=== PATIENT | male | born 1980 | race Caucasian/White ===

== ENCOUNTER 2018-11-29 09:34 | Emergency (ER) | payer SELFPAY ==
[~2018-11-29] VITALS: Ht 190.5 cm; Wt 113.5 kg
[2018-11-29 09:35] VITALS: BP 117/76
--- NOTE | 2018-11-29 09:50 | NUR ---
PATIENT AMBULATED TO BED 6.
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
[2018-11-29 11:07] VITALS: BP 111/72
== END 2018-11-29 11:09 | disposition home or self-care (01) ==
LOC: MED 09:34
DX: L08.89 Other specified local infections of the skin and subcutaneous tissue (principal); B95.7 Other staphylococcus as the cause of diseases classified elsewhere
CPT/HCPCS: 99283

== ENCOUNTER 2023-06-22 07:12 | Emergency (ER) | payer SELFPAY ==
[~2023-06-22] VITALS: Ht 190.5 cm; Wt 113.4 kg
[2023-06-22 07:17] VITALS: BP 133/89; PULSE 118; RESP 18; TEMP 98.1; O2SAT 99
[2023-06-22] MEDS: KETOROLAC 60 MG/2 ML VIAL IM ONE (07:43)
[2023-06-22] MEDS ORDERED: NAPR-1704 PO (08:24)
[2023-06-22 08:48] VITALS: BP 113/71; PULSE 104; RESP 16; TEMP 98; O2SAT 98
== END 2023-06-22 08:48 | disposition home or self-care (01) ==
LOC: MED 07:12
DX: S93.492A Sprain of other ligament of left ankle, initial encounter (principal); S50.12XA Contusion of left forearm, initial encounter; F15.10 Other stimulant abuse, uncomplicated; F17.200 Nicotine dependence, unspecified, uncomplicated; Z88.5 Allergy status to narcotic agent; Z79.899 Other long term (current) drug therapy; W18.30XA Fall on same level, unspecified, initial encounter; Y93.51 Activity, roller skating (inline) and skateboarding; Y92.89 Other specified places as the place of occurrence of the external cause; Y99.8 Other external cause status
CPT/HCPCS: 73090; 73610; 96372; 99284; J1885